=== PATIENT | female | born 2000 | race Caucasian/White ===

== ENCOUNTER 2018-06-21 20:43 | Observation (INO) ==
[2018-06-21] MEDS ORDERED: Pantoprazole Inj 40 MG Vial IV.PUSH ONE (21:11)
[2018-06-21] MEDS ORDERED: Sod Chloride 0.9% Inj 1,000 ML IV.CONT SCH (21:15)
--- NOTE | 2018-06-21 21:32 | ED ---
HPI General Chief Complaint: Abdominal Pain Stated Complaint: Abd Pain/Vomiting Time Seen by Provider: 06/21/18 21:11 Source: patient and family Mode of arrival: ambulatory Limitations: no limitations History of Present Illness MD complaint: Reports abdominal pain and flank pain Onset (ago): day(s) Pain Consistency: constant and intermittent Location: Reports diffuse, LUQ and L flank Severity: moderate Severity scale (1-10): 5 Quality: Reports cramping, stabbing and aching Radiation: Reports LUQ and L flank Migration to: Reports periumbilical Relieving factors: nothing Exacerbating factors: nothing Context: Reports history of similar episodes; Denies foreign travel, possible food poisoning, sick contacts, recent antibiotic use, recent surgery/procedure and recent injury Associated symptoms: Reports nausea, vomiting and hematemesis (x 1 per patient report only); Denies diarrhea, fever, chills, constipation, dysuria, hematochezia, melena, hematuria, anorexia and syncope Treatments prior to arrival: Reports NSAIDs Related Data Hx Last Menstrual Period: 1 week ago Patient : No Home Medications Medication Instructions Recorded Confirmed levothyroxine 50 mcg PO DAILY 06/17/18 06/21/18 Allergies Allergy/AdvReac Type Severity Reaction Status Date / Time Sulfa (Sulfonamide Allergy Mild Blurry Verified 06/17/18 14:39 Antibiotics) Vision Review of Systems ROS: all other systems reviewed are negative PMFSH Medical History Medical History Down's syndrome (Acute) ToF, AVSD (tetralogy of Fallot with atrioventricular septal defect) (Acute) Surgical History Surgical History History of open heart surgery (Acute) Social History Social History Substance History: No History of Abuse Second Hand Smoke Exposure: No Smoking Status: Never smoker How Often Do You Have a Drink Containing Alcohol: Never Recent Travel in [facility] within the Last 8 Weeks: No Recent Out of Country Travel within the Last 8 Weeks: No Immunization History Tetanus Immunization: Unsure Exam Narrative Exam Narrative: GENERAL: Well-nourished, well-developed patient. GCS 15 in no acute distress no respiratory distress. SKIN: Focused skin assessment warm/dry. HEAD: Normocephalic. EYES: No scleral icterus. No injection or drainage. Down's features. NECK: Supple, trachea midline. No JVD or lymphadenopathy. CARDIOVASCULAR: Regular rate and rhythm without murmurs, gallops, or rubs. RESPIRATORY: Breath sounds equal bilaterally. No accessory muscle use. GASTROINTESTINAL: Abdomen soft, non-tender, nondistended. MUSCULOSKELETAL: No cyanosis, or edema. BACK: Nontender without obvious deformity. No CVA tenderness. Course Initial Documented Vital Signs Temperature 98.0 F 06/21/18 20:45 Pulse Rate 88 06/21/18 20:45 Respiratory Rate 16 06/21/18 20:45 Blood Pressure 128/67 06/21/18 20:45 Pulse Oximetry 97 06/21/18 20:45 Last Documented Vital Signs Temperature 98.0 F 06/21/18 20:45 Pulse Rate 88 06/21/18 20:45 Respiratory Rate 16 06/21/18 20:45 Blood Pressure 128/67 06/21/18 20:45 Pulse Oximetry 97 06/21/18 20:45 Medical Decision Making MDM Narrative Medical decision making narrative: 17-year-old female returns to the emergency department for complaint of abdominal pain severe in nature associated with nausea vomiting possible episode of hematemesis no fever identified with last visit by ultrasound to have cholelithiasis no evidence for cholecystitis no diarrhea no urinary symptoms no shortness pleuritic pain or chest pain IV access obtained specimens collected and sent for resulting Lab values are found to be grossly normal range CT abdomen pelvis shows cholelithiasis with mild thickening of the gallbladder otherwise no acute findings Patient continues to complain of abdominal pain given morphine sulfate and Toradol Given fluids and repeat morphine sulfate Due to ongoing intractable pain of unclear etiology although may be related to biliary colic discussed with medicine service for observation admission will place in observation for intractable abdominal pain will recheck CMP in the a.m. Medical Screen Exam Complete: Yes Emergency Medical Condition: Yes Medical Records Medical records reviewed: Yes I reviewed the patient's medical records. Lab Data Lab results reviewed: Yes I reviewed the patient's lab results. Result diagrams: 06/21/18 21:37 06/21/18 21:37 POC Results POC Urine Results Negative Lab Results 06/21/18 06/21/18 06/21/18 Range/Units 21:37 21:37 21:37 WBC 6.4 (4.0-11.0) th/mm3 RBC 4.58 (4.00-5.30) mil/mm3 Hgb 15.5 H (11.6-15.3) gm/dL Hct 45.1 (35.0-46.0) % MCV 98.5 (80.0-100.0) fL MCH 33.9 (27.0-34.0) pg MCHC 34.4 (32.0-36.0) % RDW 13.8 (11.6-17.2) % Plt Count 306 (150-450) th/mm3 MPV 8.7 (7.0-11.0) fL Neut % (Auto) 53.3 (16.0-70.0) % Lymph % (Auto) 38.4 (9.0-44.0) % [place] % (Auto) 6.7 (0.0-8.0) % Eos % (Auto) 0.4 (0.0-4.0) % Baso % (Auto) 1.2 (0.0-2.0) % Neut # (Auto) 3.4 (1.8-7.7) th/mm3 Lymph # (Auto) 2.4 (1.0-4.8) th/mm3 [place] # (Auto) 0.4 (0.0-0.9) th/mm3 Eos # (Auto) 0.0 (0.0-0.4) th/mm3 Baso # (Auto) 0.1 (0.0-0.2) th/mm3 WBC Differential . Differential Comment Auto diff final Sodium 139 (136-145) meq/L Potassium 4.1 (3.5-5.1) meq/L Chloride 107 (98-107) meq/L Carbon Dioxide 26.5 (21.0-32.0) meq/L Anion Gap 6 (5-15) meq/L BUN 15 (7-18) mg/dL Creatinine 0.89 (0.50-1.00) mg/dL Estimated GFR 82 L (>89) mL/min Random Glucose 91 (74-106) mg/dL Calcium 8.9 (8.5-10.1) mg/dL Magnesium 2.2 (1.5-2.5) mg/dL Total Bilirubin 0.3 (0.2-1.0) mg/dL AST 29 (16-38) U/L ALT 26 (9-42) U/L Alkaline Phosphatase 83 (45-117) U/L Total Protein 8.0 (6.4-8.2) g/dL Albumin 3.7 (3.4-5.0) g/dL Lipase 123 (73-393) U/L Urine Color Straw (Yellw/Straw) Urine Clarity Clear (Clear) Urine pH 5.0 (5.0-8.5) Ur Specific [place] 1.005 (1.002-1.035) Urine Protein Negative (Neg-Trace) mg/dL Urine Glucose (UA) Negative (Negative) mg/dL Urine Ketones Negative (Negative) mg/dL Urine Occult Blood Negative (Negative) Urine Nitrate Negative (Negative) Urine Bilirubin Negative (Negative) Urine Urobilinogen Less than 2 (Less than 2) mg/dL Ur Leukocyte Esterase Negative (Negative) Urine RBC 1 (0-3) /hpf Urine WBC Less than 1 (0-5) /hpf Ur Squamous Epith Cells 1 (0-5) /hpf Ur Transition Epith Cell <1 (None) /hpf Urine Mucus Few H (Occasional) /lpf Micro UA Comment Cath-culture not ind Ur Microscopic Review Not Reportable Urine Culture Comments Cath-cult not ind Imaging Data Radiologist's impression: Abdomen/Pelvis CT 06/21/18 21:11 CONCLUSION: Cholelithiasis and nonspecific mild gallbladder wall thickening. Discharge Plan Discharge Disposition Patient Disposition: 30 Still Patient Discharge Condition Condition: Stable Discharge Details Diagnosis: Intractable abdominal pain Physicians Team ED Provider: Consuelo Vanegas Primary Care Provider: Primary Care HarmaniShilpa Rxs /Orders / Referrals /Forms Prescriptions: No Action levothyroxine 50 mcg Tablet 50 mcg PO DAILY RF: 0 Status ED Status: With Doctor
[2018-06-21 21:47] LABS: Baso # (Auto) 0.1 th/mm3 (0.0-0.2); Baso % (Auto) 1.2 % (0.0-2.0); Eos % (Auto) 0.4 % (0.0-4.0); Hematocrit 45.1 % (35.0-46.0); Hemoglobin 15.5 gm/dL (11.6-15.3); Lymph # (Auto) 2.4 th/mm3 (1.0-4.8); Lymph % (Auto) 38.4 % (9.0-44.0); Mean Corpuscular HGB Conc 34.4 % (32.0-36.0); Mean Corpuscular Hemoglobin 33.9 pg (27.0-34.0); Mean Corpuscular Volume 98.5 fL (80.0-100.0); Mean Platelet Volume 8.7 fL (7.0-11.0); Mono # (Auto) 0.4 th/mm3 (0.0-0.9); Mono % (Auto) 6.7 % (0.0-8.0); Neut # (Auto) 3.4 th/mm3 (1.8-7.7); Neut % (Auto) 53.3 % (16.0-70.0); Platelet Count 306 th/mm3 (150-450); Red Blood Count 4.58 mil/mm3 (4.00-5.30); Red Cell Distribution Width 13.8 % (11.6-17.2); White Blood Count 6.4 th/mm3 (4.0-11.0)
[2018-06-21 21:58] LABS: Bilirubin,Urine Negative (Negative); Clarity,Urine Clear (Clear); Color,Urine Straw (Yellw/Straw); Glucose,Urine (UA) Negative (Negative); Leukocyte Esterase,Urine Negative (Negative); Mucus,Urine Few /lpf (Occasional); Nitrite,Urine Negative (Negative); Specific Gravity,Urine 1.005 (1.002-1.035); Squamous Epithelial Cell,Urine 1 /hpf (0-5); Transitional Epi Cells,Urine <1 /hpf
[2018-06-21 22:12] LABS: Alanine Aminotransferase 26 U/L (9-42)
[2018-06-21 22:15] LABS: Alkaline Phosphatase 83 U/L (45-117)
[2018-06-21 22:16] LABS: Albumin 3.7 g/dL (3.4-5.0); Anion Gap 6 meq/L (5-15); Aspartate Aminotransferase 29 U/L (16-38); Blood Urea Nitrogen 15 mg/dL (7-18); Calcium 8.9 mg/dL (8.5-10.1); Carbon Dioxide 26.5 meq/L (21.0-32.0); Chloride 107 meq/L (98-107); Glomerular Filtration Rate 82 mL/min (>89); Glucose,Random 91 mg/dL (74-106); Lipase 123 U/L (73-393); Magnesium 2.2 mg/dL (1.5-2.5); Sodium 139 meq/L (136-145)
[2018-06-21 22:20] LABS: Potassium 4.1 meq/L (3.5-5.1)
--- NOTE | 2018-06-21 23:08 | CT ---
EXAM DATE: 06/21/2018 10:56 PM EST AGE/SEX: 17 years / Female INDICATIONS: Left upper quadrant pain. Hematemesis. CLINICAL DATA: This is the patient's initial encounter. Patient reports that signs and symptoms have been present for 4 - 6 days and indicates a pain score of 10/10. MEDICAL/SURGICAL HISTORY: . Down's syndrome. . Open heart surgery. ORAL CONTRAST: No oral contrast ingested. RADIATION DOSE: 8.63 CTDI (mGy) COMPARISON: No prior exams available for comparison. TECHNIQUE: Multiple contiguous axial images were obtained through the abdomen and pelvis following b olus infusion of 71 ml Omnipaque 350 (iohexol) nonionic water-soluble contrast as a single exam dos e. No oral contrast ingested. Using automated exposure control and adjustment of the mA and/or kV ac cording to patient size, radiation dose was kept as low as reasonably achievable to obtain optimal di agnostic quality images. DICOM format image data is available electronically for review and comparis on. FINDINGS: Lower Lungs: The visualized lower lungs are clear. Liver: Multiple gallstones identified in the gallbladder. Nonspecific mild gallbladder wall thickenin g in the fundus. Liver within normal limits. Spleen: Homogeneous density without enlargement. Pancreas: Unremarkable without mass or calcification. Kidneys: Normal in size and shape. No evidence of mass or hydronephrosis. Adrenal Glands: Unremarkable. Aorta: The aorta and proximal iliac vessels are grossly unremarkable without aneurysmal dilation. Bowel/Mesentery: No evidence of bowel dilatation. No free air or free fluid. Appendix within normal limits. Abdominal Wall: Intact. Retroperitoneum: Within normal limits. Bladder: Contours are smooth. Reproductive Organs: No abnormal masses or calcifications seen. Inguinal: The inguinal region is unremarkable without evidence of adenopathy. Bony Structures: Unremarkable. CONCLUSION: Cholelithiasis and nonspecific mild gallbladder wall thickening. Electronically signed by: Calvin Spence MD 06/21/2018 11:06 PM EST
[2018-06-21] MEDS ORDERED: Morphine Inj 4 MG/ML Vial IV.PUSH ONE (23:13)
[2018-06-21] MEDS ORDERED: Ketorolac Inj 30 MG/ML (IVP) Vial IV.PUSH ONE (23:13)
[2018-06-22] MEDS ORDERED: Morphine Inj 4 MG/ML Vial IV.PUSH ONE (00:22)
[2018-06-22] MEDS ORDERED: Sodium Chlor 0.9% Inj 500 ML IV.SIG SCH (01:00)
[2018-06-22] MEDS ORDERED: Morphine Sulfate Inj 2 MG/ML Vial IV.PUSH PRN (01:56)
[2018-06-22] MEDS ORDERED: Acetaminophen 325 MG Tablet PO PRN (01:56)
[2018-06-22] MEDS ORDERED: Bisacodyl 10 MG Supp RECTAL PRN (01:56)
--- NOTE | 2018-06-22 02:16 | P.HP ---
History of Present Illness Service: [facility] Primary Care Physician: No Primary Care Physician History of Present Illness: 17-year-old female with a past medical history significant for Down syndrome and hypothyroidism presents to the emergency department for evaluation of abdominal pain. The patient was previously evaluated on 06/17/18 where a gallbladder ultrasound revealed cholelithiasis. She was discharged home and returns today with left-sided flank/abdominal pain. The patient reports an episode of emesis prior to her arrival in the emergency department however has not had any emesis since her arrival time. She states when she was last evaluated that her pain was on the right and now it is moved to the left. CT of the abdomen/pelvis shows cholelithiasis and mild gallbladder wall thickening. LFTs within normal limits. No chest pain or shortness of breath. No fever/chills. Review of Systems All other systems reviewed negative except as stated in [facility] - History History Provided By: Patient, Family Member - Medical History Medical History: Medical History (Last Reviewed 06/22/18 @ 02:03 by Suma Shelby MD) Down's syndrome ToF, AVSD (tetralogy of Fallot with atrioventricular septal defect) - Surgical History Surgical History: Surgical History (Last Reviewed 06/22/18 @ 02:03 by Suma Shelby MD) History of open heart surgery - Family History Family History: Family History (Last Updated 06/22/18 @ 02:05 by Suma Shelby MD) Other Family history normal - Social History I have reviewed the patient's Social History: Yes - Tobacco History Second Hand Smoke Exposure: No Smoking Status: Never smoker - Alcohol History How Often Do You Have a Drink Containing Alcohol: Never - Substance Use History Substance History: No History of Abuse - Travel History Recent Travel in the [place] Within the Last 8 Weeks: No Recent Travel Out of the Country Within the Last 8 Weeks: No - Immunization History Tetanus Immunization: Unsure Medications and Allergies Active Medications: Active Medications Acetaminophen (Tylenol) 650 mg PO Q4H PRN PRN Reason: Temp > 100.4 Al Hydroxide/Mg Hydroxide (Milk Of Magnesia Liq) 30 ml PO Q12H PRN PRN Reason: Mild Constipation Bisacodyl (Dulcolax Supp) 10 mg RECTAL DAILY PRN PRN Reason: SEVERE CONSITIPATION Sodium Chloride (Ns Inj) 1,000 mls @ 125 mls/hr IV.CONT .Q8H [facility] Stop: 06/22/18 05:14 Last Admin: 06/21/18 21:43 Dose: 125 mls/hr Sodium Chloride (Ns Inj) 1,000 mls @ 100 mls/hr IV.CONT .Q10H [facility] Lactulose (Lactulose Liq) 30 ml PO DAILY PRN PRN Reason: SEVERE CONSITIPATION Levothyroxine Sodium (Synthroid) 50 mcg PO DAILY@0600 [facility] Morphine Sulfate (Morphine Inj) 2 mg IV.PUSH Q4H PRN PRN Reason: pain 6-10 Ondansetron HCl (Zofran Inj) 4 mg IV.PUSH Q6H PRN PRN Reason: NAUSEA OR VOMITING Senna/Docusate Sodium (Amanda-Colace) 1 tab PO BID [facility] Sennosides (Senokot) 17.2 mg PO Q12H PRN PRN Reason: Moderate Constipation Sodium Chloride (Ns Flush) 2 ml IV.FLUSH PRN PRN PRN Reason: FLUSH AFTER USING IV ACCESS Allergies Allergy/AdvReac Type Severity Reaction Status Date / Time Sulfa (Sulfonamide Allergy Mild Blurry Verified 06/17/18 14:39 Antibiotics) Vision Home Medications Medication Instructions Recorded Confirmed Type levothyroxine 50 mcg PO DAILY 06/17/18 06/21/18 History Exam Vital signs: Vital Signs 06/21/18 20:45 06/21/18 23:50 06/22/18 00:21 Temperature 98.0 F Pulse Rate 88 82 Respiratory Rate 16 17 16 Blood Pressure 128/67 118/61 Pulse Oximetry 97 96 06/22/18 01:46 06/22/18 02:00 Temperature 97.7 F Pulse Rate 84 Respiratory Rate 16 16 Blood Pressure 100/63 Pulse Oximetry 98 Intake & Output 06/21/18 06/21/18 06/22/18 06:59 18:59 06:59 Intake Total 500 / 500 Balance 500 / 500 Weight 77.111 kg Intake: IV 500 / 500 NS Inj 500 ML @ 1000 mls/hr IV. 500 / 500 SIG BOLUS [facility] Rx#:[id number] Narrative: Gen.: No acute distress Head: Normocephalic. Atraumatic. EENT: Pupils equal round and reactive to light. Nose without drainage. Airway intact. Throat without injection. Cardiovascular: Regular rate and rhythm. No murmurs, rubs or gallops. Respiratory: Lungs clear to auscultation bilaterally. No wheezes or rhonchi. Abdomen: Soft, diffusely tender to palpation (worse in LUQ), nondistended. No peritoneal signs. Left-sided CVA tenderness. Negative Justice's sign. Musculoskeletal: No gross deformities. No edema. Skin: No obvious rashes or erythema. Neuro: Sensory and motor grossly intact. Cranial nerves II through XII grossly intact. Results - Labs CBC & Chem 7: 06/21/18 21:37 06/21/18 21:37 Labs: Laboratory Results - last 24 hr 06/21/18 06/21/18 06/21/18 21:37 21:37 21:37 WBC 6.4 RBC 4.58 Hgb 15.5 H Hct 45.1 MCV 98.5 MCH 33.9 MCHC 34.4 RDW 13.8 Plt Count 306 MPV 8.7 Neut % (Auto) 53.3 Lymph % (Auto) 38.4 [place] % (Auto) 6.7 Eos % (Auto) 0.4 Baso % (Auto) 1.2 Neut # (Auto) 3.4 Lymph # (Auto) 2.4 [place] # (Auto) 0.4 Eos # (Auto) 0.0 Baso # (Auto) 0.1 WBC Differential . Differential Comment Auto diff final Sodium 139 Potassium 4.1 Chloride 107 Carbon Dioxide 26.5 Anion Gap 6 BUN 15 Creatinine 0.89 Estimated GFR 82 L Random Glucose 91 Calcium 8.9 Magnesium 2.2 Total Bilirubin 0.3 AST 29 ALT 26 Alkaline Phosphatase 83 Total Protein 8.0 Albumin 3.7 Lipase 123 Urine Color Straw Urine Clarity Clear Urine pH 5.0 Ur Specific [place] 1.005 Urine Protein Negative Urine Glucose (UA) Negative Urine Ketones Negative Urine Occult Blood Negative Urine Nitrate Negative Urine Bilirubin Negative Urine Urobilinogen Less than 2 Ur Leukocyte Esterase Negative Urine RBC 1 Urine WBC Less than 1 Ur Squamous Epith Cells 1 Ur Transition Epith Cell <1 Urine Mucus Few H Micro UA Comment Cath-culture not ind Ur Microscopic Review Not Reportable Urine Culture Comments Cath-cult not ind - Imaging Impressions Abdomen/Pelvis CT 06/21/18 21:11 CONCLUSION: Cholelithiasis and nonspecific mild gallbladder wall thickening. Caprini VTE Risk Assessment Caprini VTE Risk Assessment: No/Low Risk (score <= 1) Caprini Risk Assessment Model: Point Value = 1 Point Value = 2 Point Value = 3 Point Value = 5 Age 41-60 Minor surgery BMI > 25 kg/m2 Swollen legs Varicose veins or History of unexplained or recurrent spontaneous Oral contraceptives or hormone replacement Sepsis (< 1 month) Serious lung disease, including pneumonia (< 1 month) Abnormal pulmonary function Acute myocardial infarction Congestive heart failure (< 1 month) History of inflammatory bowel disease Medical patient at bed rest Age 61-74 Arthroscopic surgery Major open surgery (> 45 min) Laparoscopic surgery (> 45 min) Malignancy Confined to bed (> 72 hours) Immobilizing plaster cast Central venous access Age >= 75 History of VTE Family history of VTE Factor V Leiden Prothrombin [id number] Lupus anticoagulant Anticardiolipin antibodies Elevated serum homocysteine Heparin-induced thrombocytopenia Other congenital or acquired thrombophilia Stroke (< 1 month) Elective arthroplasty Hip, pelvis, or leg fracture Acute spinal cord injury (< 1 month) Prophylaxis Regimen: Total Risk Factor Score Risk Level Prophylaxis Regimen 0-1 Low Early ambulation 2 Moderate Order ONE of the following: *Sequential Compression Device (SCD) *Heparin 5000 units SQ BID 3-4 Higher Order ONE of the following medications: *Heparin 5000 units SQ TID *Enoxaparin/Lovenox 40 mg SQ daily (WT < 150 kg, CrCl > 30 mL/min) *Enoxaparin/Lovenox 30 mg SQ daily (WT < 150 kg, CrCl > 10-29 mL/min) *Enoxaparin/Lovenox 30 mg SQ BID (WT < 150 kg, CrCl > 30 mL/min) AND/OR *Sequential Compression Device (SCD) 5 or more Highest Order ONE of the following medications: *Heparin 5000 units SQ TID (Preferred with Epidurals) *Enoxaparin/Lovenox 40 mg SQ daily (WT < 150 kg, CrCl > 30 mL/min) *Enoxaparin/Lovenox 30 mg SQ daily (WT < 150 kg, CrCl > 10-29 mL/min) *Enoxaparin/Lovenox 30 mg SQ BID (WT < 150 kg, CrCl > 30 mL/min) AND *Sequential Compression Device (SCD) Assessment and Plan - Plan Assessment/plan: 1. Abdominal pain Unclear etiology, patient reported right-sided abdominal pain that has transitioned into left-sided abdominal pain Gallbladder ultrasound done on 06/17 showed cholelithiasis with mild hepatomegaly CT of the abdomen/pelvis done today shows cholelithiasis and mild nonspecific gallbladder wall thickening No leukocytosis LFTs within normal limits No observed emesis in the ED P.o. challenge with clear liquid diet Repeat CMP in a.m., if LFTs elevate will repeat gallbladder ultrasound and consult gastroenterology Morphine for pain 2. Hypothyroidism Continue home Synthroid FEN Clear liquid diet Electrolytes: Monitor and replete as needed NS at 100 cc/hour
[2018-06-22] MEDS: Sod Chloride 0.9% Inj 1,000 ML IV.CONT SCH ×3 (02:30→21:00)
[2018-06-22] MEDS: Levothyroxine 50 MCG Tablet PO SCH (06:07)
[2018-06-22 07:28] LABS: Baso # (Auto) 0.1 th/mm3 (0.0-0.2); Baso % (Auto) 1.1 % (0.0-2.0); Eos % (Auto) 0.3 % (0.0-4.0); Hematocrit 40.1 % (35.0-46.0); Hemoglobin 13.9 gm/dL (11.6-15.3); Lymph # (Auto) 2.2 th/mm3 (1.0-4.8); Lymph % (Auto) 39.7 % (9.0-44.0); Mean Corpuscular HGB Conc 34.7 % (32.0-36.0); Mean Corpuscular Hemoglobin 34.3 pg (27.0-34.0); Mean Corpuscular Volume 98.8 fL (80.0-100.0); Mean Platelet Volume 8.1 fL (7.0-11.0); Mono # (Auto) 0.5 th/mm3 (0.0-0.9); Mono % (Auto) 8.3 % (0.0-8.0); Neut # (Auto) 2.9 th/mm3 (1.8-7.7); Neut % (Auto) 50.6 % (16.0-70.0); Platelet Count 263 th/mm3 (150-450); Red Blood Count 4.06 mil/mm3 (4.00-5.30); Red Cell Distribution Width 13.6 % (11.6-17.2); White Blood Count 5.7 th/mm3 (4.0-11.0)
[2018-06-22 08:01] LABS: Alanine Aminotransferase 19 U/L (9-42); Alkaline Phosphatase 69 U/L (45-117); Anion Gap 7 meq/L (5-15); Aspartate Aminotransferase 19 U/L (16-38); Blood Urea Nitrogen 12 mg/dL (7-18); Carbon Dioxide 24.9 meq/L (21.0-32.0); Chloride 110 meq/L (98-107); Glomerular Filtration Rate 81 mL/min (>89); Glucose,Random 85 mg/dL (74-106); Potassium 3.5 meq/L (3.5-5.1); Sodium 142 meq/L (136-145); Total Protein 6.4 g/dL (6.4-8.2)
[2018-06-22] MEDS: Senna/Docusate Sodium 8.6/50 MG Tablet PO SCH ×2 (08:02→20:22)
[2018-06-23] MEDS: Levothyroxine 50 MCG Tablet PO SCH (05:38)
[2018-06-23 08:59] LABS: Alanine Aminotransferase 18 U/L (9-42); Albumin 2.9 g/dL (3.4-5.0); Anion Gap 9 meq/L (5-15); Aspartate Aminotransferase 19 U/L (16-38); Blood Urea Nitrogen 8 mg/dL (7-18); Carbon Dioxide 23.3 meq/L (21.0-32.0); Chloride 111 meq/L (98-107); Glomerular Filtration Rate Greater Than 89 mL/min (>89); Glucose,Random 75 mg/dL (74-106); Potassium 3.5 meq/L (3.5-5.1); Sodium 143 meq/L (136-145)
[2018-06-23 09:02] LABS: Alkaline Phosphatase 66 U/L (45-117); Total Protein 6.1 g/dL (6.4-8.2)
[2018-06-23] MEDS: Senna/Docusate Sodium 8.6/50 MG Tablet PO SCH (09:17)
[2018-06-23] MEDS: Sod Chloride 0.9% Inj 1,000 ML IV.CONT SCH (09:24)
--- NOTE | 2018-06-23 14:06 | P.PNIM ---
Subjective Interval history: patient reports abdominal pain has improved. she vomited a bit this morning. interval hx-seen by electrochemist this am Physical Exam Vital signs: Last Vital Signs Temp 98.5 F 06/23/18 12:00 Pulse 73 06/23/18 12:00 Resp 12 06/23/18 12:00 BP 108/56 L 06/23/18 12:00 Pulse Ox 95 06/23/18 12:00 Intake & Output 06/21/18 06/22/18 06/23/18 06/24/18 06:59 06:59 06:59 06:59 Intake Total 500 / 500 2000 / 2000 1000 / 1000 Output Total 0 / 0 Balance 500 / 500 1999 / 2000 1000 / 1000 Weight 77.111 kg Narrative: Gen.: No acute distress HEENT: not pale,anicteric Cardiovascular: Regular rate and rhythm. No murmurs, rubs or gallops. Respiratory: Lungs clear to auscultation bilaterally. No wheezes or rhonchi. Abdomen: abdomen soft,non tender, no organomegaly, bowel sounds normoactive. Musculoskeletal: No gross deformities. No edema. Skin: No obvious rashes or erythema. Neuro: Sensory and motor grossly intact. Cranial nerves II through XII grossly intact. Results Labs CBC & Chem 7: 06/22/18 06:58 06/23/18 06:44 Assessment and Plan Plan 1. Abdominal pain Unclear etiology, patient reported right-sided abdominal pain that has transitioned into left-sided abdominal pain Gallbladder ultrasound done on 06/17 showed cholelithiasis with mild hepatomegaly CT of the abdomen/pelvis done today shows cholelithiasis and mild nonspecific gallbladder wall thickening No leukocytosis LFTs within normal limits abdominal pain has subsided. 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 ordered barium swallow which was normal.patient's mother was reassured. it may be that patient has reflux intermittently and may need prn otc ppi. patient was on liquid diet, wanted to advance to solid for dinner prior to dc to check if she would tolerate,patient's mother would rather she eats food at home. 2. Hypothyroidism--TSH within normal limits. Patient's mother reports that patient had been off Synthroid for months, it was restarted only 5 days prior to admission,and that's when abdominal symptoms started. I would doubt if TSH was abnormal it would have normalized within these few days. FEN Clear liquid diet--can advance as tolerated. Electrolytes: Monitor and replete as needed NS at 100 cc/hour Patient is clinically stable for discharge. Progress Note: Quality VTE Deep Vein Thrombosis/Pulmonary Embolism Present on Admission: No
--- NOTE | 2018-06-23 16:12 | FL ---
EXAM DATE: 06/23/2018 3:26 PM EST AGE/SEX: 17 years / Female INDICATIONS: Dysphagia. CLINICAL DATA: This is the patient's initial encounter. Patient reports that signs and symptoms have been present for > 1 year and indicates a pain score of 10/10. MEDICAL/SURGICAL HISTORY: . Down's syndrome, AVSD . open heart surgery. COMPARISON: No prior exams available for comparison. FLUORO TIME: 0.6 IMAGE COUNT: 7 FINDINGS: Air-contrast views of the hypopharynx demonstrate a normal mucosal surface without filling defect. R apid sequence images of the hypopharynx and cervical esophagus during the passage of barium demonstra te a normal swallowing function. No evidence of aspiration. Multiphasic examination of the esophagu s demonstrates no esophageal fold thickening, ulceration, or filling defect. The gastroesophageal ju nction is normal in configuration without evidence of hiatal hernia. CONCLUSION: Negative examination. Electronically signed by: Leonidas Horn MD 06/23/2018 4:10 PM EST
== END 2018-06-23 17:33 | disposition home or self-care (01) ==
LOC: NEPC 20:43 → NEDA 20:43 → NEPFCDU 06-22 01:35
PROVIDERS: ADMIT Hospitalist; ATTEND Hospitalist
DX: Q90.9 Down syndrome, unspecified; Z79.890 Hormone replacement therapy; R16.0 Hepatomegaly, not elsewhere classified; Q21.2 Atrioventricular septal defect; Q21.3 Tetralogy of Fallot; Z88.2 Allergy status to sulfonamides; E03.9 Hypothyroidism, unspecified; K80.20 Calculus of gallbladder without cholecystitis without obstruction; R10.9 Unspecified abdominal pain; K92.0 Hematemesis